=== PATIENT | female | born 1970 | race Two or more races ===

== ENCOUNTER 2020-07-22 06:37 | Outpatient (CLI) | payer OTHER ==
[~2020-07-22 06:37] MED LIST: ALBUTEROL2.5 MG/3 M IH; GUAIFENESI100 MG/52 PO; SINGULAIR 10MG10 MG PO
== END 2020-07-22 07:30 | disposition home or self-care (01) ==
LOC: MAMO-SONO 06:37
PROVIDERS: ATTEND Obstetrics & Gynecology
DX: R92.2 Inconclusive mammogram (principal); N60.11 Diffuse cystic mastopathy of right breast

== ENCOUNTER 2022-11-14 06:56 | Day surgery (SDC) | payer OTHER ==
[~2022-11-14 06:56] MED LIST changes: +MOUNJARO10 MG/0.5; +ZYLOPRIM100 M1 PO
== END 2022-11-14 14:40 | disposition home or self-care (01) ==
LOC: CIR.AMB 06:56
PROVIDERS: ATTEND Obstetrics & Gynecology
DX: N85.02 Endometrial intraepithelial neoplasia [EIN] (principal); N93.8 Other specified abnormal uterine and vaginal bleeding; E66.09 Other obesity due to excess calories; Z20.822 Contact with and (suspected) exposure to COVID-19; Z91.013 Allergy to seafood